=== PATIENT | male | born 1955 | race Caucasian/White ===

== ENCOUNTER 2022-02-23 13:52 | Emergency (ER) | payer OTHER ==
[2022-02-23 14:34] VITALS: BP 113/77; PULSE 86; RESP 20; TEMP 98.8; BMI 27.4
[2022-02-23 18:04] LABS: THROAT:GRP A STREP NOT DETECTED (NOTDETECTED)
== END 2022-02-23 18:54 | disposition home or self-care (01) ==
LOC: JER 13:52
DX: R05.1 Acute cough (principal); M79.10 Myalgia, unspecified site
CPT/HCPCS: 0241U-QW; 71046-TC-FY; 87651; 93005; 93010; 99285-25

== ENCOUNTER 2023-04-07 08:47 | Day surgery (SDC) | payer OTHER ==
[2023-04-07 11:28] VITALS: BMI 28.1
[2023-04-07 12:11] VITALS: TEMP 97.9
[2023-04-07 12:43] VITALS: BP 107/55; PULSE 58; RESP 15
== END 2023-04-07 13:12 | disposition home or self-care (01) ==
LOC: JASU-ENDO 08:47
PROVIDERS: ATTEND Internal Medicine Gastroenterology
PROC: 0DBH8ZX Excision of Cecum, Via Natural or Artificial Opening Endoscopic, Diagnostic (ICD-10-PCS; principal; 2023-04-07 11:30)
DX: Z12.11 Encounter for screening for malignant neoplasm of colon (principal); D12.0 Benign neoplasm of cecum; K64.8 Other hemorrhoids; K57.30 Diverticulosis of large intestine without perforation or abscess without bleeding
CPT/HCPCS: 88305-TC